=== PATIENT | female | born 1980 | race American Indian/Alaskan Native ===

== ENCOUNTER 2018-02-04 09:50 | Outpatient (CLI) | payer MEDICARE ==
--- NOTE | 2018-02-04 10:37 | XRay Report ---
RIGHT FOOT THREE VIEWS: 02/04/18 CLINICAL: Trauma. A heavy chest film the top of her foot. FINDINGS: No fracture or dislocation. Mild soft tissue swelling on the dorsum of the forefoot and midfoot. No soft tissue air or foreign body. IMPRESSION: Soft tissue injury.
== END 2018-02-04 09:51 | disposition home or self-care (01) ==
LOC: SPVIMAG 09:50
PROVIDERS: ATTEND Internal Medicine
DX: M79.89 Other specified soft tissue disorders (principal)